=== PATIENT | male | born 1950 | race Caucasian/White ===

== ENCOUNTER 2017-02-12 18:17 | Inpatient (IN) | payer OTHER, BC ==
[~2017-02-12] VITALS: Ht 175.3 cm; Wt 104.3 kg
--- NOTE | ~2017-02-12 | HC ---
[facility] [place] [address] CONSULTATION Name: PER BOJORQUEZ Room #: 432-P ADM IN M.R.#: [id number] Admission: 02/12/17 Attend Phys: Abraham Kothari MD Discharge: Date of : 48 Report #: [id number] THIS REPORT FOR: //name// CC: Abraham Kothari Onesimo Contreras DATE OF SERVICE: 02/13/2017 ATTENDING PHYSICIAN: Abraham Kothari MD. REASON FOR CONSULTATION: Elevated creatinine. HISTORY OF PRESENT ILLNESS: A 66-year-old gentleman with cardiac disease, had a creatinine that yves from 1.1 up to 3.1 recently after an episode of diarrhea. Potassium was 5.3, yves to 6.1. Renal consultation called. Of note, he did have some degree of urinary retention, not exact in the records. PAST MEDICAL HISTORY: Known decreased left ventricular ejection fraction of 25%. He has got mechanical aortic and mitral valve, which he has had for a number of years, also history of hypertension, cardiac arrhythmias with atrial fibrillation as well as the knee replacement. HOME MEDICATIONS: Include ascorbic acid 500 mg daily, aspirin 81 mg daily, atorvastatin 20 mg daily, vitamin D3, fish oil, losartan 100 mg daily, metoprolol tartrate 100 mg b.i.d., Sotalol 120 mg b.i.d., spironolactone 25 mg daily and warfarin. FAMILY HISTORY: No renal disease. SOCIAL HISTORY: No cigarettes and does not abuse alcohol. REVIEW OF SYSTEMS: GENERAL: Feeling reasonably well. EYES: Vision is okay with corrective lenses. ENT: Hearing okay, swallows okay. No mouth ulcers. ENDOCRINE: No diabetes or thyroid disease. RESPIRATORY: Does occasionally get short-winded with exertion. CARDIAC: No chest pain or angina. Does have an occasional palpitation. GASTROINTESTINAL: No nausea, vomiting, diarrhea or bloody stools. GENITOURINARY: The patient's urinary stream is good. He does get up at night once. NEUROLOGIC: Denies seizure, syncope, stroke or peripheral neuropathy. PHYSICAL EXAMINATION: VITAL SIGNS: This is a reasonably well-appearing, but somewhat overweight gentleman, in no distress. [address] [address] CONSULTATION Name: PER BOJORQUEZ Room #: 432-P [facility] IN M.R.#: [id number] Admission: 02/12/17 Attend Phys: Abraham Kothari MD Discharge: Date of : 48 Report #: [id number] SKIN: Unremarkable. SKELETAL: Well-developed, well-nourished. HEENT: Extraocular movements are full. Vision is intact. Hearing is intact. Mucous membranes are moist. Tongue, buccal mucosa benign. NECK: Supple. CHEST: Clear to auscultation. HEART: Regular. ABDOMEN: Soft and nontender. EXTREMITIES: Show no edema. ASSESSMENT AND PLAN: 1. Creatinine is up. He may have had some urinary retention. I will recheck bladder postvoid. Renal sonogram is fine. I will check paraprotein and urine protein studies for completeness. Currently, I have discontinued his losartan and spironolactone. Potassium should come down nicely, is getting some IV fluids, should be able to stop that in the morning and likely will need to start him on some diuretics may be a small dose of ARB. Continue his other treatments for the atrial fibrillation. 2. Mechanical aortic and mitral valve. 3. Decreased left ventricular ejection fraction. 4. History of hypertension. By: [id number] Kody Jack MD /nt
[2017-02-12 19:27] LABS: ABSOLUTE NEUTROPHILS 7.4 thou/uL (1.4-8.2); BASOPHILS 0.2 % (0.0-2.0); EOSINOPHILS 1.6 % (0.0-3.0); HEMATOCRIT 37.7 % (42.0-52.0); HEMOGLOBIN 13.3 gm/dL (14.0-18.0); LYMPHOCYTES 13.5 % (24.0-44.0); MCH 32.8 pg (26.0-34.0); MCHC 35.3 g/dL (28.0-37.0); MCV 92.8 fL (80.0-100.0); MONOCYTES 8.3 % (1.0-8.0); PLATELET COUNT 197 thou/uL (150-400); POLYS 76.4 % (36.0-66.0); RBC 4.07 mil/uL (4.50-6.00); RDW 13.8 % (10.5-14.5); WBC 9.7 thou/uL (4.0-11.0)
[2017-02-12 19:30] LABS: MANUAL DIFF NO
[2017-02-12 19:35] LABS: CALCIUM 9.1 mg/dL (8.5-10.1); CREATININE 3.9 mg/dL (0.7-1.3); POTASSIUM 5.3 mmol/L (3.5-5.1)
[2017-02-12 19:38] LABS: APTT 32.1 Seconds (24.5-32.8); INR 2.6; PROTIME 26.3 Seconds (9.3-11.4)
[2017-02-12 19:40] LABS: DIRECT BILIRUBIN 0.2 mg/dL (<0.1-0.3); TOTAL BILIRUBIN 0.9 mg/dL (<0.1-1.0); TOTAL PROTEIN 7.7 g/dL (6.4-8.2)
[2017-02-12 19:58] LABS: URINE BILIRUBIN NEGATIVE (Negative); URINE BLOOD NEGATIVE (Negative); URINE COLOR YELLOW; URINE GLUCOSE-RANDOM* NEGATIVE (Negative); URINE KETONES NEGATIVE (Negative); URINE NITRITE NEGATIVE (Negative); URINE PROTEIN (DIPSTICK) NEGATIVE (Negative); URINE SPECIFIC GRAVITY <= 1.005 (1.003-1.035); URINE UROBILINOGEN 0.2 E.U./dl (0.2-1.0)
[2017-02-12 20:30] VITALS: BP 112/72
[2017-02-12 20:55] VITALS: BP 112/70
[2017-02-12 21:05] VITALS: BP 113/81
[2017-02-12] MEDS ORDERED: COZAAR 50 MG TA50 M2 PO (21:18)
[2017-02-12] MEDS ORDERED: ASPIR 8181 M1 PO (21:18)
[2017-02-12] MEDS ORDERED: LIPITOR 20 MG T20 M1 PO (21:19)
[2017-02-12] MEDS ORDERED: ALDACTONE25 MG PO (21:20)
[2017-02-12] MEDS ORDERED: LOPRESSOR100 M1 PO (21:20)
[2017-02-12] MEDS ORDERED: COUMADIN 4 MG TA4 M1 PO (21:21)
[2017-02-12] MEDS ORDERED: COUMADIN 3 MG TA3 M1 PO (21:22)
[2017-02-13 00:07] VITALS: BP 92/59
[2017-02-13 04:33] VITALS: BP 105/67
[2017-02-13 06:12] LABS: INR 2.3; PROTIME 23.7 Seconds (9.3-11.4)
[2017-02-13 06:23] LABS: CALCIUM 8.6 mg/dL (8.5-10.1); CREATININE 3.1 mg/dL (0.7-1.3); MAGNESIUM 2.4 mg/dL (1.8-2.4); PHOSPHORUS 4.2 mg/dL (2.5-4.9)
[2017-02-13 06:27] LABS: POTASSIUM 6.1 mmol/L (3.5-5.1)
[2017-02-13 07:59] LABS: INR 2.3; PROTIME 23.7 Seconds (9.3-11.4)
[2017-02-13 08:04] LABS: CALCIUM 8.5 mg/dL (8.5-10.1); MAGNESIUM 2.4 mg/dL (1.8-2.4)
[2017-02-13 08:20] VITALS: BP 105/72
[2017-02-13] MEDS ORDERED: SORINE 80 MG TA80 M1 PO (10:16)
[2017-02-13] MEDS ORDERED: FISH OIL 1,001000 M2 PO (10:23)
[2017-02-13] MEDS ORDERED: VITAMIN D2000 UNIT PO (10:24)
[2017-02-13] MEDS ORDERED: VITAMINC500 PO (10:25)
[2017-02-13 11:25] VITALS: BP 107/71
[2017-02-13 15:27] LABS: ALBUMIN 3.4 g/dL (3.4-5.0); CALCIUM 8.6 mg/dL (8.5-10.1); CREATININE 2.6 mg/dL (0.7-1.3); PHOSPHORUS 4.6 mg/dL (2.5-4.9)
[2017-02-13 15:29] LABS: POTASSIUM 4.6 mmol/L (3.5-5.1)
[2017-02-13 16:50] VITALS: BP 102/66
[2017-02-13 18:33] LABS: PROT/CREAT RATIO 0.2; URINE CREATININE-RANDOM* 35.7 mg/dL; URINE PROTEIN-RANDOM* < 6.0 mg/dL (<11.9)
[2017-02-13 21:00] VITALS: BP 100/62
[2017-02-14 05:00] VITALS: BP 117/82
[2017-02-14 06:20] LABS: ALBUMIN 3.5 g/dL (3.4-5.0); CALCIUM 8.7 mg/dL (8.5-10.1); CREATININE 2.1 mg/dL (0.7-1.3); PHOSPHORUS 4.1 mg/dL (2.5-4.9); POTASSIUM 5.4 mmol/L (3.5-5.1)
[2017-02-14 06:21] LABS: PROTIME 29.9 Seconds (9.3-11.4)
[2017-02-14 09:03] VITALS: BP 117/72
[2017-02-14] MEDS ORDERED: DEMADEX20 MG PO (11:23)
[2017-02-14 11:52] VITALS: BP 117/72
[2017-02-14 11:57] VITALS: BP 117/72
[2017-02-14 16:08] LABS: KAPPA FREE LIGHT CHAINS 79.6 mg/L (3.3-19.4); KAPPA/LAMBDA RATIO 2.4 (0.26-1.65); LAMBDA FREE LIGHT CHAINS 33.2 mg/L (5.7-26.3)
[2017-02-15 12:10] LABS: A/G RATIO 1.2 (0.7-1.7); ALBUMIN 3.5 g/dL (2.9-4.4); ALPHA 1 0.2 g/dL (0.0-0.4); ALPHA 2 0.5 g/dL (0.4-1.0); BETA 1.4 g/dL (0.7-1.3); GAMMA 0.7 g/dL (0.4-1.8); M-SPIKE Not Observed g/dL (Not Observed)
== END 2017-02-14 13:24 | disposition home or self-care (01) | DRG 683 ==
LOC: ER 18:17 → 4E 19:55 → EROBS 19:55 → 4E 20:55
PROVIDERS: Emergency Medicine; Internal Medicine Nephrology; Nurse Practitioner Acute Care
DX: N17.9 Acute kidney failure, unspecified (principal); I50.22 Chronic systolic (congestive) heart failure; I25.5 Ischemic cardiomyopathy; G47.33 Obstructive sleep apnea (adult) (pediatric); Z96.653 Presence of artificial knee joint, bilateral; I11.0 Hypertensive heart disease with heart failure; E87.5 Hyperkalemia; I48.2 Chronic atrial fibrillation; Z88.8 Allergy status to other drugs, medicaments and biological substances; Z95.2 Presence of prosthetic heart valve; Z86.73 Personal history of transient ischemic attack (TIA), and cerebral infarction without residual deficits; Z95.5 Presence of coronary angioplasty implant and graft; Z82.49 Family history of ischemic heart disease and other diseases of the circulatory system; Z83.3 Family history of diabetes mellitus; Z95.0 Presence of cardiac pacemaker
CPT/HCPCS: 10183

== ENCOUNTER → 2019-07-03 | Outpatient (CLI) | payer OTHER, BC ==
[~2019-07-03] MED LIST: ALDACTONE25 MG PO; ASPIR 8181 M1 PO; COUMADIN 3 MG TA3 M1 PO; COUMADIN 4 MG TA4 M1 PO; COZAAR 50 MG TA50 M2 PO; DEMADEX20 MG PO; FISH OIL 1,001000 M2 PO; LIPITOR 20 MG T20 M1 PO; LOPRESSOR100 M1 PO; SORINE 80 MG TA80 M1 PO; VITAMIN D2000 UNIT PO; VITAMINC500 PO
== END ==
LOC: SJCVC 12:03
DX: I25.10 Atherosclerotic heart disease of native coronary artery without angina pectoris (principal); R94.31 Abnormal electrocardiogram [ECG] [EKG]; I47.2 Ventricular tachycardia; I48.91 Unspecified atrial fibrillation; I10 Essential (primary) hypertension; I25.5 Ischemic cardiomyopathy; Z95.2 Presence of prosthetic heart valve; Z79.82 Long term (current) use of aspirin; Z79.899 Other long term (current) drug therapy; Z79.01 Long term (current) use of anticoagulants

== ENCOUNTER → 2019-07-28 | Outpatient (CLI) | payer OTHER, BC | LOC: SJCVC 09:09 | DX: Z51.81 Encounter for therapeutic drug level monitoring (principal); I25.5 Ischemic cardiomyopathy; G47.30 Sleep apnea, unspecified; I48.91 Unspecified atrial fibrillation; I10 Essential (primary) hypertension; I25.10 Atherosclerotic heart disease of native coronary artery without angina pectoris; M17.9 Osteoarthritis of knee, unspecified; E78.00 Pure hypercholesterolemia, unspecified; Z95.2 Presence of prosthetic heart valve; Z79.01 Long term (current) use of anticoagulants; Z95.810 Presence of automatic (implantable) cardiac defibrillator ==

== ENCOUNTER → 2019-08-24 | Outpatient (CLI) | payer OTHER, BC | LOC: SJCVC 08:43 | DX: Z51.81 Encounter for therapeutic drug level monitoring (principal); G47.30 Sleep apnea, unspecified; I25.10 Atherosclerotic heart disease of native coronary artery without angina pectoris; I12.9 Hypertensive chronic kidney disease with stage 1 through stage 4 chronic kidney disease, or unspecified chronic kidney disease; N18.9 Chronic kidney disease, unspecified; I48.91 Unspecified atrial fibrillation; E78.00 Pure hypercholesterolemia, unspecified; Z95.2 Presence of prosthetic heart valve; Z72.89 Other problems related to lifestyle; Z79.01 Long term (current) use of anticoagulants; Z79.82 Long term (current) use of aspirin; Z79.899 Other long term (current) drug therapy ==

== ENCOUNTER → 2019-09-23 | Outpatient (CLI) | payer OTHER, BC | LOC: SJCVC 09:06 | PROVIDERS: ATTEND Internal Medicine Cardiovascular Disease | DX: Z51.81 Encounter for therapeutic drug level monitoring (principal); I48.91 Unspecified atrial fibrillation; I10 Essential (primary) hypertension; I25.10 Atherosclerotic heart disease of native coronary artery without angina pectoris; E78.00 Pure hypercholesterolemia, unspecified; Z79.01 Long term (current) use of anticoagulants ==

== ENCOUNTER → 2019-10-26 | Outpatient (CLI) | payer OTHER, BC | LOC: SJCVC 09:02 | DX: Z51.81 Encounter for therapeutic drug level monitoring (principal); I48.91 Unspecified atrial fibrillation; I10 Essential (primary) hypertension; I25.10 Atherosclerotic heart disease of native coronary artery without angina pectoris; M17.9 Osteoarthritis of knee, unspecified; E78.00 Pure hypercholesterolemia, unspecified; Z95.2 Presence of prosthetic heart valve; Z95.810 Presence of automatic (implantable) cardiac defibrillator; Z79.01 Long term (current) use of anticoagulants; Z79.899 Other long term (current) drug therapy ==

== ENCOUNTER → 2019-11-23 | Outpatient (CLI) | payer OTHER, BC | LOC: SJCVC 10:54 | PROVIDERS: ATTEND Internal Medicine Cardiovascular Disease | DX: Z51.81 Encounter for therapeutic drug level monitoring (principal); I48.91 Unspecified atrial fibrillation; I10 Essential (primary) hypertension; M17.9 Osteoarthritis of knee, unspecified; E78.00 Pure hypercholesterolemia, unspecified; Z95.810 Presence of automatic (implantable) cardiac defibrillator; Z79.01 Long term (current) use of anticoagulants; Z79.82 Long term (current) use of aspirin; Z95.2 Presence of prosthetic heart valve; Z79.899 Other long term (current) drug therapy ==

== ENCOUNTER → 2019-12-22 | Outpatient (CLI) | payer OTHER, BC | LOC: SJCVC 09:03 | PROVIDERS: ATTEND Internal Medicine Cardiovascular Disease | DX: R94.31 Abnormal electrocardiogram [ECG] [EKG] (principal); I48.0 Paroxysmal atrial fibrillation; I25.5 Ischemic cardiomyopathy; I47.2 Ventricular tachycardia; Z95.810 Presence of automatic (implantable) cardiac defibrillator ==

== ENCOUNTER → 2020-01-19 | Outpatient (CLI) | payer OTHER, BC | LOC: SJCVC 09:30 | PROVIDERS: ATTEND Internal Medicine Cardiovascular Disease | DX: Z51.81 Encounter for therapeutic drug level monitoring (principal); I48.91 Unspecified atrial fibrillation; I42.9 Cardiomyopathy, unspecified; I10 Essential (primary) hypertension; I25.10 Atherosclerotic heart disease of native coronary artery without angina pectoris; E78.00 Pure hypercholesterolemia, unspecified; Z95.2 Presence of prosthetic heart valve; Z95.810 Presence of automatic (implantable) cardiac defibrillator; Z79.01 Long term (current) use of anticoagulants; Z79.899 Other long term (current) drug therapy ==

== ENCOUNTER → 2020-03-02 | Outpatient (CLI) | payer OTHER, BC | LOC: SJCVC 10:02 | PROVIDERS: ATTEND Internal Medicine Cardiovascular Disease | DX: Z51.81 Encounter for therapeutic drug level monitoring (principal); I48.91 Unspecified atrial fibrillation; I12.9 Hypertensive chronic kidney disease with stage 1 through stage 4 chronic kidney disease, or unspecified chronic kidney disease; E78.00 Pure hypercholesterolemia, unspecified; N18.9 Chronic kidney disease, unspecified; I25.10 Atherosclerotic heart disease of native coronary artery without angina pectoris; Z95.2 Presence of prosthetic heart valve; Z95.810 Presence of automatic (implantable) cardiac defibrillator; Z79.01 Long term (current) use of anticoagulants ==

== ENCOUNTER → 2020-03-30 | Outpatient (CLI) | payer OTHER, BC | LOC: SJCVC 08:58 | PROVIDERS: ATTEND Internal Medicine Cardiovascular Disease | DX: Z51.81 Encounter for therapeutic drug level monitoring (principal); Z79.01 Long term (current) use of anticoagulants; Z95.2 Presence of prosthetic heart valve ==

== ENCOUNTER → 2020-04-07 | Outpatient (CLI) | payer OTHER, BC | LOC: SJCVC 08:54 | PROVIDERS: ATTEND Internal Medicine Cardiovascular Disease | DX: Z51.81 Encounter for therapeutic drug level monitoring (principal); I48.91 Unspecified atrial fibrillation; I42.9 Cardiomyopathy, unspecified; I25.10 Atherosclerotic heart disease of native coronary artery without angina pectoris; I10 Essential (primary) hypertension; E78.00 Pure hypercholesterolemia, unspecified; Z95.2 Presence of prosthetic heart valve; Z79.01 Long term (current) use of anticoagulants; Z79.899 Other long term (current) drug therapy ==

== ENCOUNTER → 2020-04-21 | Outpatient (CLI) | payer OTHER | LOC: SJCVC 09:09 | PROVIDERS: ATTEND Internal Medicine Cardiovascular Disease | DX: Z51.81 Encounter for therapeutic drug level monitoring (principal); I48.91 Unspecified atrial fibrillation; I42.9 Cardiomyopathy, unspecified; I10 Essential (primary) hypertension; I25.10 Atherosclerotic heart disease of native coronary artery without angina pectoris; E78.00 Pure hypercholesterolemia, unspecified; Z95.2 Presence of prosthetic heart valve; Z95.810 Presence of automatic (implantable) cardiac defibrillator; Z79.01 Long term (current) use of anticoagulants; Z79.899 Other long term (current) drug therapy ==

== ENCOUNTER → 2020-05-05 | Outpatient (CLI) | payer OTHER | LOC: SJCVC 08:50 | PROVIDERS: ATTEND Internal Medicine Cardiovascular Disease | DX: Z51.81 Encounter for therapeutic drug level monitoring (principal); Z79.01 Long term (current) use of anticoagulants; Z95.2 Presence of prosthetic heart valve ==

== ENCOUNTER → 2020-06-02 | Outpatient (CLI) | payer OTHER | LOC: SJCVC 08:55 | PROVIDERS: ATTEND Internal Medicine Cardiovascular Disease | DX: Z51.81 Encounter for therapeutic drug level monitoring (principal); Z79.01 Long term (current) use of anticoagulants ==

== ENCOUNTER → 2020-06-21 | Outpatient (CLI) | payer OTHER, BC | LOC: SJCVC 09:36 | PROVIDERS: ATTEND Internal Medicine Cardiovascular Disease | DX: R94.31 Abnormal electrocardiogram [ECG] [EKG] (principal); I47.2 Ventricular tachycardia; I48.0 Paroxysmal atrial fibrillation; I25.5 Ischemic cardiomyopathy; I25.10 Atherosclerotic heart disease of native coronary artery without angina pectoris; I12.9 Hypertensive chronic kidney disease with stage 1 through stage 4 chronic kidney disease, or unspecified chronic kidney disease; N18.9 Chronic kidney disease, unspecified; E78.00 Pure hypercholesterolemia, unspecified; I73.9 Peripheral vascular disease, unspecified; Z95.810 Presence of automatic (implantable) cardiac defibrillator; Z79.01 Long term (current) use of anticoagulants; Z79.82 Long term (current) use of aspirin; Z79.899 Other long term (current) drug therapy ==

== ENCOUNTER → 2020-07-05 | Outpatient (CLI) | payer OTHER, BC | LOC: SJCVC 09:07 | PROVIDERS: ATTEND Internal Medicine Cardiovascular Disease | DX: Z51.81 Encounter for therapeutic drug level monitoring (principal); I48.91 Unspecified atrial fibrillation; I10 Essential (primary) hypertension; I25.10 Atherosclerotic heart disease of native coronary artery without angina pectoris; E78.00 Pure hypercholesterolemia, unspecified; Z95.2 Presence of prosthetic heart valve; Z95.810 Presence of automatic (implantable) cardiac defibrillator; Z79.01 Long term (current) use of anticoagulants; Z79.82 Long term (current) use of aspirin; Z79.899 Other long term (current) drug therapy ==

== ENCOUNTER → 2020-07-08 | Outpatient (CLI) | payer OTHER, BC | LOC: SJCVCIMAG 07-07 09:28 | PROVIDERS: ATTEND Internal Medicine Cardiovascular Disease | DX: I07.1 Rheumatic tricuspid insufficiency (principal); I25.10 Atherosclerotic heart disease of native coronary artery without angina pectoris; I48.0 Paroxysmal atrial fibrillation; I25.5 Ischemic cardiomyopathy; I13.10 Hypertensive heart and chronic kidney disease without heart failure, with stage 1 through stage 4 chronic kidney disease, or unspecified chronic kidney disease; N18.9 Chronic kidney disease, unspecified; G47.30 Sleep apnea, unspecified; I25.2 Old myocardial infarction; Z95.2 Presence of prosthetic heart valve; Z95.810 Presence of automatic (implantable) cardiac defibrillator; Z79.82 Long term (current) use of aspirin; Z79.01 Long term (current) use of anticoagulants; Z79.899 Other long term (current) drug therapy ==

== ENCOUNTER → 2020-07-19 | Outpatient (CLI) | payer OTHER, BC | LOC: SJCVC 09:31 | PROVIDERS: ATTEND Internal Medicine Cardiovascular Disease | DX: Z51.81 Encounter for therapeutic drug level monitoring (principal); I48.91 Unspecified atrial fibrillation; I42.9 Cardiomyopathy, unspecified; I10 Essential (primary) hypertension; I25.10 Atherosclerotic heart disease of native coronary artery without angina pectoris; M17.9 Osteoarthritis of knee, unspecified; E78.00 Pure hypercholesterolemia, unspecified; Z95.810 Presence of automatic (implantable) cardiac defibrillator; Z95.2 Presence of prosthetic heart valve; Z79.82 Long term (current) use of aspirin; Z79.01 Long term (current) use of anticoagulants; Z79.899 Other long term (current) drug therapy ==

== ENCOUNTER → 2020-08-18 | Outpatient (CLI) | payer OTHER, BC | LOC: SJCVC 09:57 | PROVIDERS: ATTEND Internal Medicine Cardiovascular Disease | DX: Z51.81 Encounter for therapeutic drug level monitoring (principal); I48.91 Unspecified atrial fibrillation; I42.9 Cardiomyopathy, unspecified; I10 Essential (primary) hypertension; I25.10 Atherosclerotic heart disease of native coronary artery without angina pectoris; E78.00 Pure hypercholesterolemia, unspecified; M17.0 Bilateral primary osteoarthritis of knee; Z95.810 Presence of automatic (implantable) cardiac defibrillator; Z95.2 Presence of prosthetic heart valve; Z79.82 Long term (current) use of aspirin; Z79.01 Long term (current) use of anticoagulants; Z79.899 Other long term (current) drug therapy ==

== ENCOUNTER → 2020-09-01 | Outpatient (CLI) | payer OTHER, BC | LOC: SJCVC 08:55 | PROVIDERS: ATTEND Internal Medicine Cardiovascular Disease | DX: Z51.81 Encounter for therapeutic drug level monitoring (principal); G47.30 Sleep apnea, unspecified; I25.5 Ischemic cardiomyopathy; I48.91 Unspecified atrial fibrillation; I10 Essential (primary) hypertension; E78.00 Pure hypercholesterolemia, unspecified; Z95.2 Presence of prosthetic heart valve; Z95.810 Presence of automatic (implantable) cardiac defibrillator; Z79.01 Long term (current) use of anticoagulants; Z88.8 Allergy status to other drugs, medicaments and biological substances ==